=== PATIENT | female | born 1995 | race African-American/Black ===

== ENCOUNTER 2021-10-02 20:55 | Emergency (ER) | payer MEDICAID ==
[~2021-10-02] VITALS: Ht 162.6 cm; Wt 99.0 kg
[2021-10-02] MEDS ORDERED: VALA100044 MT (22:37)
[2021-10-02] MEDS ORDERED: ACET-2708 MT (22:37)
[2021-10-02 23:49] VITALS: BP 138/95
== END 2021-10-02 23:50 | disposition home or self-care (01) ==
LOC: ER 20:55
DX: L30.9 Dermatitis, unspecified (principal); B02.9 Zoster without complications; I10 Essential (primary) hypertension; R73.03 Prediabetes; N13.8 Other obstructive and reflux uropathy; Z88.8 Allergy status to other drugs, medicaments and biological substances
CPT/HCPCS: 81025; 99283